=== PATIENT | female | born 1950 | race Caucasian/White ===

== ENCOUNTER → 2016-06-02 | Outpatient (CLI) | payer BC ==
[2016-05-11 11:05] VITALS: BP 115/65
[~2016-06-02] MED LIST: AMOX1TAB61 PO; ASPI-482 PO; ASPI81TA50 PO; IOHEXOL 240 MG/ML 50ML VIAL. PO ONE; IOHEXOL 300 MG/ML 75 ML VIAL IV ONE; LEVO112T2 PO; LEVO25TA2 PO; MULT1TAB52 PO
--- NOTE | 2016-06-02 15:37 | RAD ---
PQRS Compliance Statement: One or more of the following individualized dose reduction techniques were utilized for this examination: 1. Automated exposure control 2. Adjustment of the mA and/or kV according to patient size 3. Use of iterative reconstruction technique CT of the abdomen and pelvis with contrast, 06/02/2016: History: Rectal bleeding Multidetector CT imaging was performed following oral and IV administration of contrast. There is minimal dependent atelectasis in the lung bases. There is no evidence of a hepatic mass or bile duct dilatation. The gallbladder is unremarkable. The spleen is of normal size. No renal or adrenal abnormality is detected. The pancreatic head appears to be at the upper limits of normal in size. The duodenum is not significantly opacified and cannot be clearly from the pancreatic head, however, on the axial images the pancreatic head measures approximately 3.5 cm in AP dimension and 3.9 cm in width. The pancreatic body and tail are unremarkable. The pancreatic densities are uniform without evidence of a discrete mass. The common bile duct in the head of the pancreas is of normal size. There is moderate aortoiliac calcific plaquing. There is only slight dilatation of the infrarenal abdominal aorta which measures 2.2 cm in width. No abdominal or pelvic adenopathy is seen. The uterus is surgically absent. The bowel loops are not dilated. Several small sigmoid diverticula are noted. No paracolonic inflammatory process is seen. No free fluid or free air is evident in the abdomen or pelvis. IMPRESSION: 1. Minimal sigmoid diverticulosis. 2. The pancreatic head is at the upper limits of normal in size without evidence of a discrete mass. 3. No acute abdominal or pelvic abnormality is detected.
== END | disposition home or self-care (01) ==
LOC: CT 07:47
PROVIDERS: ATTEND Family Medicine
DX: K92.1 Melena (principal); R10.32 Left lower quadrant pain; R10.11 Right upper quadrant pain; K57.90 Diverticulosis of intestine, part unspecified, without perforation or abscess without bleeding
CPT/HCPCS: 74177; Q9966; Q9967

== ENCOUNTER → 2016-12-31 | Outpatient (CLI) | payer BC ==
[2016-05-11 11:05] VITALS: BP 115/65
[~2016-12-31] MED LIST changes: -IOHEXOL 240 MG/ML 50ML VIAL. PO ONE; -IOHEXOL 300 MG/ML 75 ML VIAL IV ONE; -LEVO25TA2 PO; +LEVO25TA55 PO
--- NOTE | 2016-12-31 15:03 | KCIC ---
CT of the paranasal sinuses without contrast. Indication: Chronic pansinusitis.. Headache.. Technique: Contiguous axial images are obtained. Multiplanar reformatted images are also obtained. Exposure: One or more of the following individualized dose reduction techniques were utilized for this examination: 1. Automated exposure control 2. Adjustment of the mA and/or kV according to patient size 3. Use of iterative reconstruction technique. Comparison study: None available. Findings: No significant mucosal thickening or fluid within the paranasal sinuses. Ostiomeatal units are patent. There is some sclerotic change about both mastoid sinuses, greater on the right, suggesting old mastoid sinus disease. The orbits appear unremarkable and symmetric. IMPRESSION: No evidence of acute sinusitis. Electronically signed by: Néstor Jay MD (12/31/2016 2:59 PM) [facility]
== END | disposition home or self-care (01) ==
LOC: KCIC CT 13:36
PROVIDERS: ATTEND Otolaryngology
DX: J32.4 Chronic pansinusitis (principal); R51 Headache
CPT/HCPCS: 70486

== ENCOUNTER → 2017-12-01 | Outpatient (CLI) | payer MEDICARE ==
[2016-05-11 11:05] VITALS: BP 115/65
--- NOTE | 2017-12-01 11:29 | KCIC ---
EXAM: Dual energy x-ray absorptiometry (DEXA). HISTORY: Postmenopausal female presents for osteoporosis screening. COMPARISON: 04/06/2012. TECHNIQUE: Dual energy x-ray absorptiometry of the lumbar spine and left hip was performed. Calculation of bone mineral density based on standard deviations above or below the expected young adult normal value (T-score) was completed. FINDINGS: The average bone mineral density in the 1st through 4th lumbar vertebrae is 1.003 g/cmxcm, corresponding with a T-score of -0.4. There has been a 3.2% decrease in density of the lumbar spine compared to the prior study. The average total bone mineral density in the left hip is 0.755 g/cmxcm, corresponding with a T-score of -1.5. There has been a 4.4% decrease in density of the left hip compared to the prior study. IMPRESSION: 1. Osteopenia measured at the left hip. 2. Normal bone mineral density measured at the lumbar spine. Note: Definitions established by the World Health Organization: 1. Normal: T-score is -1.0 or above. 2. Osteopenia: T-score is between -1.0 and -2.5 . 3. Osteoporosis: T-score is -2.5 or below. Electronically signed by: Erin Solo MD (12/01/2017 11:26 AM) [place] [id number]
--- NOTE | 2017-12-01 11:32 | KCIC ---
CT chest without contrast dated 12/01/2017. No comparison available. Clinical data indication: Lung cancer screening. 75 pack-year smoking history. TECHNIQUE: Contiguous axial imaging the chest performed without the administration of intravenous contrast. Thin cut coronal and axial reconstructions performed using low-dose lung cancer screening protocol. One or more of the following individualized dose reduction techniques were utilized for this examination: 1. Automated exposure control 2. Adjustment of the mA and/or kV according to patient size 3. Use of iterative reconstruction technique. FINDINGS: Heart size within normal limits. No pericardial effusion. Scattered coronary artery calcifications. No mediastinal, hilar or axillary lymphadenopathy. Central airways are patent. Mild to moderate upper zone predominant emphysema. There is mild biapical scarring. Mild diffuse bronchial wall thickening. No consolidation or pleural effusion. No suspicious pulmonary nodule or mass. Minimal linear opacity in the bilateral lung bases, likely related to scarring. Limited images of upper abdomen unremarkable. No significant bony abnormality. Multilevel spondylosis. IMPRESSION: 1. No suspicious pulmonary nodule or mass. Recommend continued follow-up LDCT in 12 months. Lung RADS category 1. 2. Mild to moderate emphysema. 3. Biapical and bibasilar scarring. 4. Coronary artery calcifications. Electronically signed by: Néstor Best MD (12/01/2017 11:29 AM) [id number]
== END | disposition home or self-care (01) ==
LOC: KCIC CT 10:41
PROVIDERS: ATTEND Nurse Practitioner Family
DX: Z12.2 Encounter for screening for malignant neoplasm of respiratory organs (principal); Z13.820 Encounter for screening for osteoporosis; M85.88 Other specified disorders of bone density and structure, other site; J43.9 Emphysema, unspecified; I25.10 Atherosclerotic heart disease of native coronary artery without angina pectoris; M47.894 Other spondylosis, thoracic region; Z87.891 Personal history of nicotine dependence; Z90.710 Acquired absence of both cervix and uterus
CPT/HCPCS: 77080; G0297

== ENCOUNTER 2018-05-15 19:13 | Emergency (ER) | payer MEDICARE ==
[~2018-05-15] VITALS: Ht 157.5 cm; Wt 65.8 kg
[2018-05-15 19:14] VITALS: BP 156/89
[2018-05-15] MEDS ORDERED: HYDROcodone/APAP 5/325MG 1 TAB TABLET PO ONE (19:30)
[2018-05-15] MEDS ORDERED: HYDR-3164 PO (19:51)
[2018-05-15] MEDS ORDERED: AMOX1TAB61 PO (19:51)
--- NOTE | 2018-05-15 19:51 | PHYS DOC ---
Past Medical History Past Medical History: Other Additional Past Medical Histor: graves disease Past Surgical History: Hysterectomy, Other Additional Past Surgical Histo: thyroidectomy, bilat eye surgery for exopthalmus, cataracts Additional Information: 2 PPD Alcohol Use: None Drug Use: None Adult General Chief Complaint Chief Complaint: EARACHE/EAR PAIN [facility] HPI Patient is a 67 year old [f__sex] who presents with [] Review of Systems Review of Systems Constitutional: Denies fever or chills [] Eyes: Denies change in visual acuity, redness, or eye pain [] HENT: Denies nasal congestion or sore throat [] Respiratory: Denies cough or shortness of breath [] Cardiovascular: No additional information not addressed in HPI [] GI: Denies abdominal pain, nausea, vomiting, bloody stools or diarrhea [] : Denies dysuria or hematuria [] Musculoskeletal: Denies back pain or joint pain [] Integument: Denies rash or skin lesions [] Neurologic: Denies headache, focal weakness or sensory changes [] Endocrine: Denies polyuria or polydipsia [] All other systems were reviewed and found to be within normal limits, except as documented in this note. Current Medications Current Medications Current Medications Medications (Trade) Dose Ordered Sig/Jacinto Start Time Stop Time Status Last Admin Dose Admin Acetaminophen/ Hydrocodone Bitart (Lortab 5/325) 1 tab 1X ONCE 05/15/18 19:30 05/15/18 19:31 DC 05/15/18 19:42 1 TAB Allergies Allergies Allergies Coded Allergies Type Severity Reaction Last Updated Verified Sulfa (Sulfonamide Antibiotics) Allergy Mild "ITCHY" 05/15/18 Yes Physical Exam Physical Exam Constitutional: Well developed, well nourished, no acute distress, non-toxic appearance. [] HENT: Normocephalic, atraumatic, bilateral external ears normal, oropharynx moist, no oral exudates, nose normal. [] Eyes: PERRLA, EOMI, conjunctiva normal, no discharge. [] Neck: Normal range of motion, no tenderness, supple, no stridor. [] Cardiovascular:Heart rate regular rhythm, no murmur [] Lungs & Thorax: Bilateral breath sounds clear to auscultation [] Abdomen: Bowel sounds normal, soft, no tenderness, no masses, no pulsatile masses. [] Skin: Warm, dry, no erythema, no rash. [] Back: No tenderness, no CVA tenderness. [] Extremities: No tenderness, no cyanosis, no clubbing, ROM intact, no edema. [] Neurologic: Alert and oriented X 3, normal motor function, normal sensory function, no focal deficits noted. [] Psychologic: Affect normal, judgement normal, mood normal. [] Current Patient Data Vital Signs Vital Signs Date Time Temp Pulse Resp B/P (MAP) Pulse Ox O2 Delivery O2 Flow Rate FiO2 05/15/18 19:42 18 100 Room Air 05/15/18 19:14 98.3 90 156/89 (111) 98.3 EKG EKG [] Radiology/Procedures Radiology/Procedures [] Course & Med Decision Making Course & Med Decision Making Pertinent Labs and Imaging studies reviewed. (See chart for details) [] Dragon Disclaimer Dragon Disclaimer This electronic medical record was generated, in whole or in part, using a voice recognition dictation system. Departure Departure Impression: Primary Impression: Rupture of left tympanic membrane Disposition: HOME, SELF-CARE Condition: STABLE Referrals: LEIA HAAS MD (PCP) Patient Instructions: Tympanic Membrane Perforation-SportsMed Additional Instructions: Avoid submerging left ear in water. Keep appointment tomorrow with your ENT doctor for re-evaluation and further care. If bleeding increases and won't stop or with any concerns return to Emergency Department for re-evaluation. Scripts Hydrocodone/Apap 5-325 (NORCO 5-325 TABLET) 1 Each Tablet 1 TAB PO PRN Q6HRS PRN for PAIN, #8 TAB 0 Refills No driving or drinking alcohol while taking this medication Prov: AURE HOLT APRN 05/15/18 Amoxicillin/Potassium Clav (AUGMENTIN 875-125 TABLET) 1 Each Tablet 1 TAB PO BID, #14 TAB 0 Refills Prov: AURE HOLT APRN 05/15/18 AURE HOLT APRN May 15, 2018 19:51
== END 2018-05-15 19:52 | disposition home or self-care (01) ==
LOC: ER 19:13
DX: H72.92 Unspecified perforation of tympanic membrane, left ear (principal); F17.200 Nicotine dependence, unspecified, uncomplicated; E89.0 Postprocedural hypothyroidism; Z90.710 Acquired absence of both cervix and uterus; Z88.2 Allergy status to sulfonamides
CPT/HCPCS: 99283

== ENCOUNTER → 2019-01-30 | Outpatient (CLI) | payer MEDICARE ==
[~2019-01-30] MED LIST changes: +HYDR-3164 PO
--- NOTE | 2019-01-31 09:38 | KCIC ---
PA and lateral chest. HISTORY: Acute bronchitis, productive cough, history of smoking, J 20.9, PA and lateral views were taken of the chest. There is mild linear scarring or atelectasis without other infiltrates. Heart is normal in size. There is mild scoliosis. There is no pleural effusion. IMPRESSION: 1. No acute infiltrates. Electronically signed by: Mike Reynolds MD (01/31/2019 9:35 AM) [id number]
== END | disposition home or self-care (01) ==
LOC: KCIC 11:49
PROVIDERS: ATTEND Nurse Practitioner Family
DX: J20.9 Acute bronchitis, unspecified (principal); M41.84 Other forms of scoliosis, thoracic region; Z87.891 Personal history of nicotine dependence
CPT/HCPCS: 71046

== ENCOUNTER 2019-05-12 08:40 | Emergency (ER) | payer MEDICARE ==
[~2019-05-12] VITALS: Ht 157.5 cm; Wt 65.0 kg
[2019-05-12 09:16] LABS: BASO # 0.1 x10^3/uL (0.0-0.2); BASO % 1 % (0-3); EOS # 0.2 x10^3/uL (0.0-0.7); EOS % 1 % (0-3); HEMATOCRIT 44.5 % (36.0-47.0); HEMOGLOBIN 15.7 g/dL (12.0-15.5); LYMPH # 3.1 x10^3/uL (1.0-4.8); LYMPH % 20 % (24-48); MEAN CORPUSCULAR HEMOGLOBIN 33 pg (25-35); MEAN CORPUSCULAR HGB CONC 35 g/dL (31-37); MEAN CORPUSCULAR VOLUME 94 fL (79-100); MONO # 0.9 x10^3/uL (0.0-1.1); MONO % 6 % (0-9); NEUT # 10.7 x10^3/uL (1.8-7.7); NEUT % 71 % (31-73); PLATELET COUNT 303 x10^3/uL (140-400); RED BLOOD COUNT 4.74 x10^6/uL (3.50-5.40); RED CELL DISTRIBUTION WIDTH 13.9 % (11.5-14.5)
--- NOTE | 2019-05-12 09:18 | PHYS DOC ---
Past Medical History Past Medical History: Other Additional Past Medical Histor: graves disease Past Surgical History: Hysterectomy, Other Additional Past Surgical Histo: thyroidectomy, bilat eye surgery for exopthalmus, cataracts Smoking Status: Current Every Day Smoker Alcohol Use: None Drug Use: None Adult General Chief Complaint Chief Complaint: ABDOMINAL PAIN HPI HPI Patient is a 68 year old female who presented to ER today for evaluation of lo wer abdominal pain and back pain started yesterday. Patient complaints of pain after she urinated. She denies any fever, no nausea vomiting. She denies any blood in her stool. Patient denies any blood in her urine. She had history of chronic low back pain. Patient denies any injury, denies any bowel or bladder incontinence. Nothing makes her pain better. Moving around makes the pain worse. All other ROS is negative unless otherwise noted in HPI Review of Systems Review of Systems See above Current Medications Current Medications Current Medications Medications (Trade) Dose Ordered Sig/Jacinto Start Time Stop Time Status Last Admin Dose Admin Amoxicillin/ Clavulanate Potassium (Augmentin 875/ 125mg) 1 tab 1X ONCE 05/12/19 11:00 05/12/19 11:01 DC 05/12/19 11:18 1 TAB Ciprofloxacin/ Dextrose 200 ml @ 200 mls/hr 1X ONCE 05/12/19 10:45 05/12/19 10:46 DC Fentanyl Citrate (Fentanyl 2ml Vial) 50 mcg 1X ONCE 05/12/19 10:45 05/12/19 10:46 DC 05/12/19 11:19 50 MCG Info (CONTRAST GIVEN -- Rx MONITORING) 1 each PRN DAILY PRN 05/12/19 10:00 05/14/19 09:59 Iohexol (Omnipaque 300 Mg/ml) 75 ml 1X ONCE 05/12/19 10:00 05/12/19 10:01 DC 05/12/19 10:18 75 ML Metronidazole (Flagyl) 500 mg 1X ONCE 05/12/19 11:00 05/12/19 11:01 DC 05/12/19 11:19 500 MG Allergies Allergies Allergies Coded Allergies Type Severity Reaction Last Updated Verified Sulfa (Sulfonamide Antibiotics) Allergy Mild "ITCHY" 05/15/18 Yes Physical Exam Physical Exam See above Constitutional: Well developed, well nourished, no acute distress, non-toxic appearance. [] HENT: Normocephalic, atraumatic, bilateral external ears normal, oropharynx moist, no oral exudates, nose normal. [] Eyes: PERRLA, EOMI, conjunctiva normal, no discharge. [] Neck: Normal range of motion, no tenderness, supple, no stridor. [] Cardiovascular:Heart rate regular rhythm, no murmur [] Lungs & Thorax: Bilateral breath sounds clear to auscultation [] Abdomen: Bowel sounds normal, soft, There is tenderness to palpation in suprapubic area, no rebound, no guarding, no masses, no pulsatile masses. [] Skin: Warm, dry, no erythema, no rash. [] Back: No tenderness, no CVA tenderness. [] Extremities: No tenderness, no cyanosis, no clubbing, ROM intact, no edema. [] Neurologic: Alert and oriented X 3, normal motor function, normal sensory function, no focal deficits noted. [] Psychologic: Affect normal, judgement normal, mood normal. [] Current Patient Data Vital Signs Vital Signs Date Time Temp Pulse Resp B/P (MAP) Pulse Ox O2 Delivery O2 Flow Rate FiO2 05/12/19 08:52 98.4 95 16 144/75 (98) 97 Room Air 98.4 Lab Values Laboratory Tests Test 05/12/19 09:05 White Blood Count 15.0 x10^3/uL (4.0-11.0) H Red Blood Count 4.74 x10^6/uL (3.50-5.40) Hemoglobin 15.7 g/dL (12.0-15.5) H Hematocrit 44.5 % (36.0-47.0) Mean Corpuscular Volume 94 fL (79-100) Mean Corpuscular Hemoglobin 33 pg (25-35) Mean Corpuscular Hemoglobin Concent 35 g/dL (31-37) Red Cell Distribution Width 13.9 % (11.5-14.5) Platelet Count 303 x10^3/uL (140-400) Neutrophils (%) (Auto) 71 % (31-73) Lymphocytes (%) (Auto) 20 % (24-48) L Monocytes (%) (Auto) 6 % (0-9) Eosinophils (%) (Auto) 1 % (0-3) Basophils (%) (Auto) 1 % (0-3) Neutrophils # (Auto) 10.7 x10^3/uL (1.8-7.7) H Lymphocytes # (Auto) 3.1 x10^3/uL (1.0-4.8) Monocytes # (Auto) 0.9 x10^3/uL (0.0-1.1) Eosinophils # (Auto) 0.2 x10^3/uL (0.0-0.7) Basophils # (Auto) 0.1 x10^3/uL (0.0-0.2) Prothrombin Time 12.3 SEC (11.7-14.0) Prothrombin Time INR 0.9 (0.8-1.1) Activated Partial Thromboplast Time 29 SEC (24-38) Urine Collection Type Unknown Urine Color Yellow Urine Clarity Clear Urine pH 7.0 Urine Specific [place] 1.010 Urine Protein Negative mg/dL (NEG-TRACE) Urine Glucose (UA) Negative mg/dL (NEG) Urine Ketones (Stick) Negative mg/dL (NEG) Urine Blood Small (NEG) Urine Nitrite Negative (NEG) Urine Bilirubin Negative (NEG) Urine Urobilinogen Dipstick 0.2 mg/dL (0.2 mg/dL) Urine Leukocyte Esterase Negative (NEG) Urine RBC 11-20 /HPF (0-2) Urine WBC Occ /HPF (0-4) Urine Squamous Epithelial Cells Mod /LPF Urine Bacteria Few /HPF (0-FEW) Sodium Level 141 mmol/L (136-145) Potassium Level 3.7 mmol/L (3.5-5.1) Chloride Level 103 mmol/L (98-107) Carbon Dioxide Level 28 mmol/L (21-32) Anion Gap 10 (6-14) Blood Urea Nitrogen 10 mg/dL (7-20) Creatinine 0.8 mg/dL (0.6-1.0) Estimated GFR (Cockcroft-Gault) 71.8 BUN/Creatinine Ratio 13 (6-20) Glucose Level 97 mg/dL (70-99) Calcium Level 8.9 mg/dL (8.5-10.1) Total Bilirubin 0.4 mg/dL (0.2-1.0) Aspartate Amino Transferase (AST) 14 U/L (15-37) L Alanine Aminotransferase (ALT) 19 U/L (14-59) Alkaline Phosphatase 82 U/L (46-116) Total Protein 7.6 g/dL (6.4-8.2) Albumin 3.9 g/dL (3.4-5.0) Albumin/Globulin Ratio 1.1 (1.0-1.7) Lipase 138 U/L (73-393) Laboratory Tests 05/12/19 09:05 Laboratory Tests 05/12/19 09:05 EKG EKG [] Radiology/Procedures Radiology/Procedures [][facility] [address] [place] [address] IMAGING REPORT Signed PATIENT: CECILIA BACON ACCOUNT: [id number] : 1950 LOCATION: ER AGE: 68 SEX: F EXAM STATUS: REG ER ORD. PHYSICIAN: KIRSTIN MINA DO REASON: lower abdominal pain PROCEDURE: CT ABD PELV W/ IV CONTRST ONLY Study: CT abdomen/pelvis with intravenous contrast Indication: Lower abdominal pain. Comparison: 06/02/2016 Technique: Helical CT imaging performed of the abdomen and pelvis after the intravenous administration of 75 cc Omnipaque 300 contrast. Sagittal and coronal reformats were obtained. One or more of the following individualized dose reduction techniques were utilized for this examination: 1. Automated exposure control 2. Adjustment of the mA and/or kV according to patient size 3. Use of iterative reconstruction technique. Findings: Chest: Mild basilar volume loss. Unremarkable visualized heart. Liver: Unremarkable. Gallbladder/Biliary Tree: Unremarkable. Pancreas: Unremarkable. Spleen: Unremarkable. Adrenal Glands: Unremarkable. Kidneys/Ureters/Bladder: Normal kidney size and enhancement. No change from the prior. No hydroureteronephrosis. Unremarkable urinary bladder. Reproductive Organs: Absent uterus. No adnexal mass. Colon: Mid to proximal sigmoid diverticulitis extending over a length of approximately 6.5 cm surrounding inflammatory changes without abscess formation. No uncontained perforation. Mild constipation. Appendix: Not well visualized. No inflammatory changes at its expected location. Small Bowel: Unremarkable. Stomach: Unremarkable. Vasculature: Calcified and noncalcified atheromatous plaque scattered throughout the aorta and iliofemoral systems. 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 This is slightly larger from the comparison previously at 2.3 cm. Lymph Nodes: Unremarkable. Peritoneum and Body Wall: No significant volume free fluid. No free air. Bones: Scattered degenerative changes. No acute or destructive osseous abnormality. Miscellaneous: None. Impression: 1. Diverticulitis involving the mid to proximal sigmoid colon over a length of approximately 6.5 cm without perforation or abscess formation. 2. 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 This is slightly larger from the 2017 comparison which measured at 2.3 cm. Background multifocal calcified and noncalcified atheromatous plaque. Electronically signed by: ABRAHAM SIDHU MD (05/12/2019 10:30 AM) [id number] DICTATED and SIGNED BY: ABRAHAM SIDHU MD DATE: 05/12/19 103 Course & Med Decision Making Course & Med Decision Making Pertinent Labs and Imaging studies reviewed. (See chart for details) She is a 68-year-old female who was found to have diverticulitis without perforation or abscess. Patient was recommended to be admitted to hospital for IV antibiotics however she did not want to stay in the hospital. Patient would like to go home with outpatient treatment first, she is scheduled to see her doctor on Tuesday. Patient promised to come back to ER if she does not get any better. Dragon Disclaimer Dragon Disclaimer This electronic medical record was generated, in whole or in part, using a voice recognition dictation system. Departure Departure Impression: Primary Impression: Diverticulitis Disposition: HOME, SELF-CARE Condition: STABLE Referrals: LEIA HAAS MD (PCP) follow up with your doctor on tuesday for a referral to GI specialist next week. Patient Instructions: Diverticulitis Additional Instructions: Thank you for visiting our Emergency Department. We appreciate you trusting us with your care. If any additional problems come up don't hesitate to return to visit us. Please follow up with your primary care provider so they can plan a dditional care if needed and know about the problem that you had. If symptoms worsen come back to the Emergency Department. Any concerning symptoms that start such as chest pain, shortness of air, weakness or numbness on one side of the body, running high fevers or any other concerning symptoms return to the ER. Scripts Amoxicillin/Potassium Clav (AUGMENTIN 875-125 TABLET) 1 Each Tablet 1 TAB PO BID for 10 Days, #20 TAB 0 Refills Prov: KIRSTIN MINA DO 05/12/19 Metronidazole (FLAGYL) 500 Mg Tablet 500 MG PO TID for 10 Days, #30 TAB Prov: KIRSTIN MINA DO 05/12/19 KIRSTIN MINA DO May 12, 2019 09:18
[2019-05-12 09:22] LABS: BILIRUBIN,URINE NEGATIVE (NEG); CLARITY,URINE CLEAR; COLOR,URINE YELLOW; NITRITE,URINE NEGATIVE (NEG); PROTEIN,URINE NEGATIVE (NEG-TRACE); UROBILINOGEN,URINE 0.2 mg/dL (0.2 mg/dL)
[2019-05-12 09:24] LABS: BACTERIA,URINE FEW /HPF (0-FEW); SQUAMOUS EPITHELIAL CELL,UR MOD /LPF
[2019-05-12 09:25] LABS: WBC,URINE OCC /HPF (0-4)
[2019-05-12 09:26] LABS: PROTHROMBIN TIME PATIENT 12.3 SEC (11.7-14.0)
[2019-05-12 09:28] LABS: CALCIUM 8.9 mg/dL (8.5-10.1); CREATININE 0.8 mg/dL (0.6-1.0); GFR 71.8; POTASSIUM 3.7 mmol/L (3.5-5.1)
[2019-05-12 09:31] LABS: ALBUMIN 3.9 g/dL (3.4-5.0); ALBUMIN/GLOBULIN RATIO 1.1 (1.0-1.7); TOTAL BILIRUBIN 0.4 mg/dL (0.2-1.0); TOTAL PROTEIN 7.6 g/dL (6.4-8.2)
[2019-05-12] MEDS ORDERED: CONTRAST GIVEN. MC PRN (10:00)
[2019-05-12] MEDS ORDERED: IOHEXOL 300 MG/ML 100ML VIAL. IV ONE (10:00)
--- NOTE | 2019-05-12 10:33 | RAD ---
Study: CT abdomen/pelvis with intravenous contrast Indication: Lower abdominal pain. Comparison: 06/02/2016 Technique: Helical CT imaging performed of the abdomen and pelvis after the intravenous administration of 75 cc Omnipaque 300 contrast. Sagittal and coronal reformats were obtained. One or more of the following individualized dose reduction techniques were utilized for this examination: 1. Automated exposure control 2. Adjustment of the mA and/or kV according to patient size 3. Use of iterative reconstruction technique. Findings: Chest: Mild basilar volume loss. Unremarkable visualized heart. Liver: Unremarkable. Gallbladder/Biliary Tree: Unremarkable. Pancreas: Unremarkable. Spleen: Unremarkable. Adrenal Glands: Unremarkable. Kidneys/Ureters/Bladder: Normal kidney size and enhancement. No change from the prior. No hydroureteronephrosis. Unremarkable urinary bladder. Reproductive Organs: Absent uterus. No adnexal mass. Colon: Mid to proximal sigmoid diverticulitis extending over a length of approximately 6.5 cm surrounding inflammatory changes without abscess formation. No uncontained perforation. Mild constipation. Appendix: Not well visualized. No inflammatory changes at its expected location. Small Bowel: Unremarkable. Stomach: Unremarkable. Vasculature: Calcified and noncalcified atheromatous plaque scattered throughout the aorta and iliofemoral systems. 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 This is slightly larger from the comparison previously at 2.3 cm. Lymph Nodes: Unremarkable. Peritoneum and Body Wall: No significant volume free fluid. No free air. Bones: Scattered degenerative changes. No acute or destructive osseous abnormality. Miscellaneous: None. Impression: 1. Diverticulitis involving the mid to proximal sigmoid colon over a length of approximately 6.5 cm without perforation or abscess formation. 2. 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 This is slightly larger from the 2017 comparison which measured at 2.3 cm. Background multifocal calcified and noncalcified atheromatous plaque. Electronically signed by: ABRAHAM SIDHU MD (05/12/2019 10:30 AM) [id number]
[2019-05-12] MEDS ORDERED: fentaNYL PF VIAL 100 MCG/2 ML VIAL IVP ONE (10:45)
[2019-05-12] MEDS ORDERED: CIPROFLOXACIN 400MG PREMIX 200 ML IV ONE (10:45)
[2019-05-12] MEDS ORDERED: metroNIDAZOLE 500 MG TABLET PO ONE (11:00)
[2019-05-12] MEDS ORDERED: AMOXICILLIN/K CLAV 875/125MG TABLET. PO ONE (11:00)
[2019-05-12 11:05] VITALS: BP 137/72
[2019-05-12] MEDS ORDERED: AMOX1TAB61 PO (11:05)
[2019-05-12] MEDS ORDERED: METR500T PO (11:05)
== END 2019-05-12 11:35 | disposition home or self-care (01) ==
LOC: ER 08:40
DX: K57.32 Diverticulitis of large intestine without perforation or abscess without bleeding (principal); R10.30 Lower abdominal pain, unspecified; M54.5 Low back pain; G89.29 Other chronic pain; F17.200 Nicotine dependence, unspecified, uncomplicated; Z90.710 Acquired absence of both cervix and uterus; Z90.89 Acquired absence of other organs; Z98.890 Other specified postprocedural states; Z88.2 Allergy status to sulfonamides; Z79.899 Other long term (current) drug therapy
CPT/HCPCS: 36415; 74177; 80053; 81001; 83690; 85025; 85610; 85730; 96374; 99285; J3010; Q9967

== ENCOUNTER 2019-05-14 07:49 | Emergency (ER) | payer MEDICARE ==
[~2019-05-14] VITALS: Ht 160 cm; Wt 65.9 kg
[~2019-05-14 07:49] MED LIST changes: +METR500T PO
--- NOTE | 2019-05-14 08:46 | PHYS DOC ---
Past Medical History Past Medical History: Other Additional Past Medical Histor: graves disease Past Surgical History: Hysterectomy, Other Additional Past Surgical Histo: thyroidectomy, bilat eye surgery for exopthalmus, cataracts Smoking Status: Current Every Day Smoker Alcohol Use: None Drug Use: None Adult General Chief Complaint Chief Complaint: ABDOMINAL PAIN HPI HPI Patient is a 68 female who presents to the ER with complaint of ongoi ng lower abdominal pain. She was seen in the ER 2 days ago and has a history of diverticulitis and was diagnosed with diverticulitis at that time but refused admission. Her CT scan showed diverticulitis without perforation and her white blood cell count was 15,000. She was placed on Augmentin and ciprofloxacin which she has been taking. She was feeling better yesterday but her pain worsened today and is radiating to her back. She also complains of some left-sided jaw pain that started around 7:30 this morning and is rated as mild to moderate but ongoing. She denies chest pain or shortness of breath. She has no cardiac history. Review of Systems Review of Systems All other ROS is negative unless otherwise stated in HPI Current Medications Current Medications Current Medications Medications (Trade) Dose Ordered Sig/Jacinto Start Time Stop Time Status Last Admin Dose Admin Morphine Sulfate (Morphine Sulfate) 2 mg 1X ONCE 05/14/19 08:45 05/14/19 08:46 DC 05/14/19 09:08 2 MG Sodium Chloride 1,000 ml @ 1,000 mls/hr Q1H 05/14/19 08:38 05/14/19 09:37 DC 05/14/19 09:07 1,000 MLS/HR Allergies Allergies Allergies Coded Allergies Type Severity Reaction Last Updated Verified Sulfa (Sulfonamide Antibiotics) Allergy Mild "ITCHY" 05/15/18 Yes Physical Exam Physical Exam See above Constitutional: Well developed, well nourished, no acute distress, non-toxic appearance. [] HENT: Normocephalic, atraumatic, bilateral external ears normal, oropharynx moist, no oral exudates, nose normal. [] Eyes: PERRLA, EOMI, conjunctiva normal, no discharge. [] Neck: Normal range of motion, no tenderness, supple, no stridor. [] Cardiovascular:Heart rate regular rhythm, no murmur [] Lungs & Thorax: Bilateral breath sounds clear to auscultation [] Abdomen: Bowel sounds normal, soft, there is tenderness in the left lower quadrant and suprapubic region., no masses, no pulsatile masses. [] Skin: Warm, dry, no erythema, no rash. [] Back: No tenderness, no CVA tenderness. [] Extremities: No tenderness, no cyanosis, no clubbing, ROM intact, no edema. [] Neurologic: Alert and oriented X 3, normal motor function, normal sensory function, no focal deficits noted. [] Psychologic: Affect normal, judgement normal, mood normal. [] Current Patient Data Vital Signs Vital Signs Date Time Temp Pulse Resp B/P (MAP) Pulse Ox O2 Delivery O2 Flow Rate FiO2 05/14/19 09:08 20 91 Room Air Lab Values Laboratory Tests Test 05/14/19 08:30 05/14/19 09:00 Urine Collection Type Unknown Urine Color Yellow Urine Clarity Clear Urine pH 7.5 Urine Specific [place] 1.010 Urine Protein Negative mg/dL (NEG-TRACE) Urine Glucose (UA) Negative mg/dL (NEG) Urine Ketones (Stick) Negative mg/dL (NEG) Urine Blood Negative (NEG) Urine Nitrite Negative (NEG) Urine Bilirubin Negative (NEG) Urine Urobilinogen Dipstick 0.2 mg/dL (0.2 mg/dL) Urine Leukocyte Esterase Negative (NEG) Urine RBC 1-2 /HPF (0-2) Urine WBC 1-4 /HPF (0-4) Urine Squamous Epithelial Cells Few /LPF Urine Bacteria 0 /HPF (0-FEW) White Blood Count 8.9 x10^3/uL (4.0-11.0) Red Blood Count 4.51 x10^6/uL (3.50-5.40) Hemoglobin 15.0 g/dL (12.0-15.5) Hematocrit 42.2 % (36.0-47.0) Mean Corpuscular Volume 94 fL (79-100) Mean Corpuscular Hemoglobin 33 pg (25-35) Mean Corpuscular Hemoglobin Concent 36 g/dL (31-37) Red Cell Distribution Width 13.6 % (11.5-14.5) Platelet Count 282 x10^3/uL (140-400) Neutrophils (%) (Auto) 60 % (31-73) Lymphocytes (%) (Auto) 29 % (24-48) Monocytes (%) (Auto) 8 % (0-9) Eosinophils (%) (Auto) 2 % (0-3) Basophils (%) (Auto) 1 % (0-3) Neutrophils # (Auto) 5.4 x10^3/uL (1.8-7.7) Lymphocytes # (Auto) 2.6 x10^3/uL (1.0-4.8) Monocytes # (Auto) 0.7 x10^3/uL (0.0-1.1) Eosinophils # (Auto) 0.2 x10^3/uL (0.0-0.7) Basophils # (Auto) 0.1 x10^3/uL (0.0-0.2) Prothrombin Time 12.9 SEC (11.7-14.0) Prothrombin Time INR 1.0 (0.8-1.1) Activated Partial Thromboplast Time 30 SEC (24-38) Troponin I Quantitative < 0.017 ng/mL (0.000-0.055) Laboratory Tests 05/14/19 09:00 EKG EKG []EKG shows normal sinus rhythm with no ST changes and a heart rate of 71 with normal intervals. Radiology/Procedures Radiology/Procedures PORTABLE CHEST 1V Clinical History: Jaw pain Technique: AP view of the chest was obtained at 05/14/2019 8:46 AM. Comparison: January 30, 2019. Findings: The cardiomediastinal silhouette is normal. The pulmonary vasculature is normal. The lungs and pleural margins are clear. Impression: No evidence of an acute cardiopulmonary process. Electronically signed by: Robinson Castanon III, MD (05/14/2019 9:16 AM) [id number][] Course & Med Decision Making Course & Med Decision Making Pertinent Labs and Imaging studies reviewed. (See chart for details) 0845: Patient seen for ongoing symptoms of diverticulitis. We'll recheck labs today and given IV fluids. Patient also has no jaw pain so we will initiate cardiac workup. Her EKG is unremarkable. 0953: Patient is feeling better at this time. Her white blood cell count improved from 15,000-8500. She has received IV fluids. We'll send her home with a small amount of hydrocodone for ongoing pain and she is given instructed to continue her antibiotics for resolution. Dragon Disclaimer Dragon Disclaimer This electronic medical record was generated, in whole or in part, using a voice recognition dictation system. Departure Departure Impression: Primary Impression: Diverticulitis Additional Impression: Lower abdominal pain Disposition: 01 HOME, SELF-CARE Condition: IMPROVED Referrals: LEIA HAAS MD (PCP) Follow up in 2-3 days. Patient Instructions: Diverticulitis Scripts Hydrocodone/Apap 5-325 (NORCO 5-325 TABLET) 1 Each Tablet 1 TAB PO PRN Q6HRS PRN for PAIN, #10 TAB 0 Refills Prov: CAL JUDD DO 05/14/19 Problem Qualifiers CAL JUDD DO May 14, 2019 08:46
--- NOTE | 2019-05-14 09:05 | EKG ---
[facility] [address] [place] [address] Test Date: 2019-05-14 Test Time: 08:35:31 Pat Name: CECILIA BACON Department: Room: Gender: F [employer] Officer: : 1950 Requested By: CAL JUDD Order Number: [id number] Reading MD: Measurements Intervals [place] Rate: 71 P: -13 GA: 152 QRS: 8 QRSD: 80 T: 26 QT: 388 QTc: 426 Interpretive Statements SINUS RHYTHM NO SPECIFIC ECG ABNORMALITIES RI6.01 No previous ECG available for comparison
[2019-05-14] MEDS: IV NORMAL SALINE 1000ML BAG 1,000 ML IV SCH (09:07)
[2019-05-14] MEDS: MORPHINE SULFATE 2 MG/ML VIAL. IV ONE (09:08)
[2019-05-14 09:13] LABS: BILIRUBIN,URINE NEGATIVE (NEG); CLARITY,URINE CLEAR; COLOR,URINE YELLOW; NITRITE,URINE NEGATIVE (NEG); PH,URINE 7.5; PROTEIN,URINE NEGATIVE (NEG-TRACE); UROBILINOGEN,URINE 0.2 mg/dL (0.2 mg/dL)
[2019-05-14 09:19] LABS: BASO # 0.1 x10^3/uL (0.0-0.2); BASO % 1 % (0-3); EOS # 0.2 x10^3/uL (0.0-0.7); EOS % 2 % (0-3); HEMATOCRIT 42.2 % (36.0-47.0); LYMPH # 2.6 x10^3/uL (1.0-4.8); LYMPH % 29 % (24-48); MEAN CORPUSCULAR HEMOGLOBIN 33 pg (25-35); MEAN CORPUSCULAR HGB CONC 36 g/dL (31-37); MEAN CORPUSCULAR VOLUME 94 fL (79-100); MONO # 0.7 x10^3/uL (0.0-1.1); MONO % 8 % (0-9); NEUT # 5.4 x10^3/uL (1.8-7.7); NEUT % 60 % (31-73); PLATELET COUNT 282 x10^3/uL (140-400); RED BLOOD COUNT 4.51 x10^6/uL (3.50-5.40); RED CELL DISTRIBUTION WIDTH 13.6 % (11.5-14.5); WHITE BLOOD COUNT 8.9 x10^3/uL (4.0-11.0)
--- NOTE | 2019-05-14 09:19 | RAD ---
PORTABLE CHEST 1V Clinical History: Jaw pain Technique: AP view of the chest was obtained at 05/14/2019 8:46 AM. Comparison: January 30, 2019. Findings: The cardiomediastinal silhouette is normal. The pulmonary vasculature is normal. The lungs and pleural margins are clear. Impression: No evidence of an acute cardiopulmonary process. Electronically signed by: Robinson Castanon III, MD (05/14/2019 9:16 AM) [id number]
[2019-05-14 09:21] LABS: PROTHROMBIN TIME PATIENT 12.9 SEC (11.7-14.0)
[2019-05-14 09:29] LABS: BACTERIA,URINE 0 /HPF (0-FEW); SQUAMOUS EPITHELIAL CELL,UR FEW /LPF
[2019-05-14 09:57] VITALS: BP 150/68
[2019-05-14] MEDS ORDERED: HYDR-3164 PO (09:57)
[2019-05-14 10:09] LABS: CREATINE KINASE 32 U/L (26-192)
[2019-05-14 10:25] LABS: CALCIUM 9.2 mg/dL (8.5-10.1); CREATININE 0.8 mg/dL (0.6-1.0); GFR 71.8
[2019-05-14 10:31] LABS: ALBUMIN 3.7 g/dL (3.4-5.0); TOTAL BILIRUBIN 0.3 mg/dL (0.2-1.0); TOTAL PROTEIN 7.4 g/dL (6.4-8.2)
== END 2019-05-14 10:37 | disposition home or self-care (01) ==
LOC: ER 07:49
DX: K57.92 Diverticulitis of intestine, part unspecified, without perforation or abscess without bleeding (principal); R68.84 Jaw pain; Z90.710 Acquired absence of both cervix and uterus; F17.200 Nicotine dependence, unspecified, uncomplicated; Z88.2 Allergy status to sulfonamides
CPT/HCPCS: 36415; 71045; 80053; 81001; 82553; 83690; 84484; 85025; 85610; 85730; 93005; 96374; 99285; J2270; J7030

== ENCOUNTER → 2021-03-02 | Day surgery (SDC) | payer MEDICARE ==
[~2021-03-02] VITALS: Ht 157.5 cm; Wt 65.9 kg
[~2021-03-02] MED LIST changes: +BIOT25006 PO; +CALC-450 PO; +IV RINGERS,LACTATED 1000ML 1,000 ML IV SCH; +LACT1CAP21 PO; +LEVO5TAB29 PO; +LIDOCAINE 2% PF 5 ML VIAL. ONE; +MULT-445 PO; -MULT1TAB52 PO; +OMEG-117 PO; +PRED20TA PO; +PROPOFOL 10 MG/ML (20ML) VIAL. IV ONE
[2021-03-02 12:21] VITALS: BP 150/72
--- NOTE | 2021-03-02 13:13 | PDOC1 ---
History and Physical Date of Admission Date of Admission DATE: 03/02/21 TIME: 13:07 Identification/Chief Complaint Chief Complaint Colon cancer screening Source Source: Chart review, Patient History of Present Illness History of Present Illness 70 y/o female seen at [facility] in May 2019 for diverticulitis. Seen in office after and colonoscopy recommended as not done for >10 years. Was not accomplished. Recently had positive Cologuard. No real GI complaints currently. Past Medical History Cardiovascular: HTN, Hyperlipidemia Endocrine: Hyperthyroidism (Graves disease) Past Surgical History Past Surgical History: Cataract Removal, Hysterectomy, Other (thyroidectomy) Family History Family History: Diabetes, Other (GIFH negative.) Social History ALCOHOL: none Drugs: None Current Medications Current Medications Current Medications Ringer's Solution 1,000 ml @ 50 mls/hr Q20H IV Last administered on 03/02/21at 12:33; Start 03/02/21 at 07:00; Stop 03/02/21 at 18:59 Active Scripts Active Reported Prednisone 20 Mg Tablet 10 Mg PO DAILY Biotin 2,500 Mcg Capsule 1 Cap PO DAILY 30 Days Caltrate 600 + D Soft Chew Tab (Calcium Carbonate/Vitamin D3) 1 Each Tab.chew 1 Each PO DAILY Culturelle (Lactobacillus Rhamnosus Gg) 1 Each Capsule 1 Cap PO DAILY 30 Days Fish Oil 1,200 mg Softgel ([place]-3/Dha/Epa/Fish Oil) 1 Each Capsule.dr 1 Cap PO DAILY 30 Days Xyzal (Levocetirizine Dihydrochloride) 5 Mg Tablet 5 Mg PO DAILY Aspir 81 (Aspirin) 81 Mg Tablet.dr 1 Tab PO DAILY Synthroid (Levothyroxine Sodium) 112 Mcg Tablet 1 Tab PO DAILY Allergies Allergies: Coded Allergies: Sulfa (Sulfonamide Antibiotics) (Verified Allergy, Mild, "ITCHY", 05/15/18) ROS Review of System Otherwise negative. Physical Exam General: Alert, Oriented X3, Cooperative, No acute distress HEENT: PERRLA, EOMI Lungs: Clear to auscultation, Normal air movement Heart: S1S2, RRR, no gallops, no murmurs Abdomen: Normal bowel sounds, Soft, No tenderness, No hepatosplenomegaly, No masses Rectal Exam: deferred (to procedure) Extremities: No cyanosis, No edema Skin: No significant lesion Neuro: Normal speech, Strength at 5/5 X4 ext, Normal tone, Sensation intact, Cranial nerves 3-12 NL, Reflexes 2+ Psych/Mental Status: Mental status NL, Mood NL Vitals Vitals Vital Signs Date Time Temp Pulse Resp B/P (MAP) Pulse Ox O2 Delivery O2 Flow Rate FiO2 03/02/21 12:21 97.5 75 14 98 97.5 VTE Prophylaxis Ordered VTE Prophylaxis Devices: Contraindicated VTE Pharmacological Prophylaxi: No Assessment/Plan Assessment/Plan IMP: Screen for colon cancer. Positive hemoccult increases risk as does di verticulosis. PLAN: colonoscopy. SHARI MENARD MD Mar 02, 2021 13:13
--- NOTE | 2021-03-02 14:03 | PDOC4 ---
PROCEDURE Procedure Colonoscopy Indication: screen for colon cancer/positive Cologuard Meds: per anesthesia Findings: TASHIA normal. --'Scope advanced to cecum. Prep adequate for polyps>6mm. Multiple diverticula, sigmoid with angulation and spasm. Internal hemorrhoids on retroflex. Exam otherwise normal. [place]. well. IMP: Diverticulosis IH's. REC: Resume diet and meds. Colonoscopy in 10 years. No further w/u needed for the positive Cologuard per the literature. SHARI MENARD MD Mar 02, 2021 14:03
[2021-03-02 14:34] VITALS: BP 107/68
== END | disposition home or self-care (01) ==
LOC: ENDOS 11:53
PROVIDERS: ATTEND Internal Medicine Gastroenterology
DX: R19.5 Other fecal abnormalities (principal); K57.92 Diverticulitis of intestine, part unspecified, without perforation or abscess without bleeding; K57.30 Diverticulosis of large intestine without perforation or abscess without bleeding; K64.0 First degree hemorrhoids; K63.89 Other specified diseases of intestine; I10 Essential (primary) hypertension; E78.5 Hyperlipidemia, unspecified; E05.90 Thyrotoxicosis, unspecified without thyrotoxic crisis or storm; F17.210 Nicotine dependence, cigarettes, uncomplicated; Z90.710 Acquired absence of both cervix and uterus; Z98.890 Other specified postprocedural states; Z79.899 Other long term (current) drug therapy; Z79.82 Long term (current) use of aspirin; Z88.2 Allergy status to sulfonamides; Z83.3 Family history of diabetes mellitus
CPT/HCPCS: 45378; J2704